=== PATIENT | female | born 1975 | race Caucasian/White ===

== ENCOUNTER 2017-12-12 05:51 | Observation (INO) | payer OTHER ==
[~2017-12-12] VITALS: Ht 152.4 cm; Wt 60.7 kg
[2017-12-12] MEDS ORDERED: ceFAZolin 2 GM PREMIX 50 ML ONE (06:59)
[2017-12-12] MEDS ORDERED: METOPROLOL TARTRATE 25 MG TAB PO PRN (07:00)
[2017-12-12] MEDS ORDERED: POVIDONE IODINE 5% (ANTISEPSIS KIT) 4 APPLICATIONS EACH NARE PRN (07:00)
[2017-12-12] MEDS ORDERED: CHLORHEXIDINE GLUCONATE 2 % 1 PACK (2 CLOTHS) TOPICAL PRN (07:00)
[2017-12-12] MEDS ORDERED: LACTATED RINGER'S 1000 ML IV PRN (07:00)
[2017-12-12] MEDS ORDERED: SODIUM CHLORID 0.9% 500 ML IV PRN (07:00)
[2017-12-12] MEDS ORDERED: ceFAZolin 2 GM PREMIX 50 ML IV SCH (07:15)
[2017-12-12] MEDS ORDERED: VASOPRESSIN 20 UNITS/ML VIAL (IVTITR) ONE (08:46)
[2017-12-12] MEDS ORDERED: ESTROGENS CONJUGATED VAG CREA 15 APPL/30 GM TUBE ONE (08:46)
[2017-12-12] MEDS ORDERED: BUPIVACAINE/EPINEPHRINE 0.25% PF 30 ML VIAL ONE (08:46)
[2017-12-12] MEDS ORDERED: LACTATED RINGER'S 1000 ML INJ 1,000 ML IV SCH (09:54)
--- NOTE | 2017-12-12 09:54 | HHI.PR ---
Immediate Post Op Note Procedure Date: Dec 12, 2017 Pre Op Diagnosis: (1) Premenopausal menorrhagia (2) Secondary dysmenorrhea (3) Cervical dysplasia, mild Post Op Diagnosis: (1) S/P laparoscopic assisted vaginal hysterectomy (LAVH) (2) Premenopausal menorrhagia (3) Secondary dysmenorrhea (4) Cervical dysplasia, mild Surgeon: Oneida Buckley Lease Out Man(s): Valerie Penaloza MD; [place] staff Procedure: exam under anesthesia, laparoscopic assisted vaginal hysterectomy, right salpingo-oophorectomy, left salpingectomy Findings: anteverted 10 wk size globular uterus; peritoneal window along right uterosacral ligament and blunting and shortening of right round ligament suspicion for endometriosis; normal left ovary; minimal adhesion of left fallopian tube to colon, successfully lysed; normal appearing cervix; slightly enlarged and elongated right ovary, normal appearing right fallopian tube Complications: none Specimen(s) removed: uterus, cervix, right fallopian tube, right ovary, left fallopian tube Estimated blood loss: 200 mL Anesthesia: General Drains: None Fluids: 1200 mL IVF Urinary Output (mLs): 175 Patient to: PACU Patient Condition: Good Oneida Buckley MD Dec 12, 2017 09:54
[2017-12-12] MEDS ORDERED: SODIUM CHLORIDE 0.9% FLUSH 10 ML FLUSH IV FLUSH SCH (10:00)
[2017-12-12] MEDS ORDERED: SODIUM CHLORIDE 0.9% FLUSH 10 ML FLUSH IV FLUSH PRN (10:00)
[2017-12-12] MEDS ORDERED: diphenhydrAMINE HCL 25 MG CAP PO PRN (10:00)
[2017-12-12] MEDS ORDERED: ONDANSETRON HCL 4 MG/2 ML VIAL IVP PRN (10:00)
[2017-12-12] MEDS ORDERED: LORazepam 0.5 MG TAB PO PRN (10:00)
[2017-12-12 11:15] VITALS: PULSE 68; RESP 16; TEMP 98.3
--- NOTE | 2017-12-12 11:41 | MP ---
cc: SUSAN GUTHRIE M.D. DATE OF SURGERY 12/12/2017 PREOPERATIVE DIAGNOSIS 1. Premenopausal menorrhagia. 2. Secondary dysmenorrhea. 3. Persistent cervical dysplasia. POSTOPERATIVE DIAGNOSIS 1. Premenopausal menorrhagia. 2. Secondary dysmenorrhea. 3. Persistent cervical dysplasia. 4. Post-op day 0. INDICATIONS Stella Echeverria is a 42-year-old, 2, para 2, who has a history of progressively heavier and more painful menstrual cycles. She declined medication management as well as minimally invasive options. Due to her history of inconsistent low-grade Paps over the past few years the patient desired a hysterectomy with or without removal of tubes and ovaries. PROCEDURE PERFORMED 1. Exam under anesthesia. 2. Laparoscopic-assisted vaginal hysterectomy. 3. Right salpingo-oophorectomy. 4. Left salpingectomy. SURGEON Susan Guthrie M.D. [employer] SURGEON Valerie Penaloza M.D. ANESTHESIA General. ESTIMATED BLOOD LOSS 200 mL. IV FLUID REPLACEMENT 1200 mL. URINE OUTPUT 175 mL of clear urine draining in the Escobar bag at the end of the procedure. COMPLICATIONS None. COUNTS Sponge, lap, instrument, and needle count correct x2 at the conclusion of the procedure. PROPHYLAXIS Ancef 2 grams IV was given preoperatively. SCDs were on and functioning throughout the entire case. INTRAOPERATIVE FINDINGS Normal female external genitalia. Cervix smooth, 3 cm, mobile with intact fornices. Uterus anteflexed, approximately 10 weeks' size. On intra-abdominal survey the uterus was somewhat globular. The right uterosacral ligament had a peritoneal window overlying it. The right round ligament was somewhat blunted with some thickening of the peritoneum suspicious for endometriosis in that area. The right ovary was somewhat enlarged and elongated. The right tube was within normal limits. There was slight scar tissue of the left fallopian tube to the colon. The left ovary was within normal limits. SPECIMEN Uterus, cervix, right ovary, right fallopian tube, left fallopian tube. PROCEDURE IN DETAIL After reviewing the informed consent the patient was taken to the operating suite where a timeout was performed to identify the patient, the planned procedure and any known allergies to drugs or drug products. The patient was placed in dorsal supine position and general anesthesia was administered without difficulty and found to be adequate. The patient was then gently elevated into low lithotomy position in Danny stirrups. Exam under anesthesia was performed with results as listed above. The abdomen and perineum were prepped and draped in normal sterile fashion. A Escobar catheter was placed using sterile technique. Attention was turned vaginally where a bivalve speculum was placed. The cervix was grasped on the anterior lip with a single-tooth tenaculum and the uterus sounded to 9 cm. Progression of cervical dilators were used to accommodate the HUMI uterine manipulator which was introduced without complication. The tenaculum and speculum were then removed vaginally. Attention was turned abdominally where approximately 3 mL of 1% lidocaine with epinephrine was injected at the base of the umbilicus. A scalpel was used to make a 5 mm incision at this point. Under direct visual entry technique the laparoscopic camera was introduced without complication and correct positioning was confirmed. The gas was turned on. The abdomen was insufflated. Slight Trendelenburg positioning was performed. An additional approximately 3 mL of 1% lidocaine with epinephrine were injected in the left and right lower quadrants where a scalpel was then used to make 5 mm incisions. At these points trocars were introduced under laparoscopic visual guidance without complication. Attention was turned to the right round ligament which was elevated, grasped with Harmonic scalpel, cauterized and divided. A bladder flap was then delineated on the right side. The right ovary and fallopian tube were then elevated from their vascular pedicle and Harmonic scalpel was used to clamp, seal, ligate and divide this pedicle with excellent hemostasis. Additional clamp, seal and divide technique using Harmonic scalpel was used to secure the uterine blood supply on the right down to the level of the uterine artery. Attention was then turned to the left. The left fallopian tube was attempted to be elevated. There was slight adhesion. This was lifted up and clearly visualized. Harmonic scalpel was used to successively clamp and ligate this adhesion without complication. The tube itself was then elevated and Harmonic scalpel was used to successively clamp, seal and ligate along the vascular pedicle. Once the tube was free the specimen was removed through the 5 mm trocar without complication and passed off the field to be evaluated by pathology. The left round ligament was then elevated, grasped with Harmonic scalpel, clamped, sealed and divided. Again the peritoneum overlying this area was gently developed to allow for a bladder flap on the left. The uterine blood supply was then secured using Harmonic scalpel with clamp, seal and divide technique all the way to the level of the uterine artery on the left. Excellent hemostasis was noted. The instruments were then removed from the laparoscopic trocars. The gas was turned off. The abdomen was desufflated. Attention was turned vaginally where a weighted speculum was placed posteriorly and a curved Olivier was used to retract anteriorly. The cervix was visualized, grasped on the anterior lip with a single-tooth tenaculum. Additional 1% lidocaine was injected in the vesicouterine peritoneum to separate the space between the lower uterine segment and the bladder. Bovie cautery was used to incise this space and using pickups and Metzenbaum scissors the anterior cul-de-sac was successfully entered and Olivier retractor replaced through this opening. Attention was then turned posteriorly where pickups and curved Tuttle scissors were used to successfully enter the posterior cul-de-sac. Again appropriate entry was noted. A single suture of 0 Vicryl was used to nicki the colpotomy and a bivalve weighted speculum was introduced into the posterior culdesac. Curved hysterectomy clamps were then used to successively clamp, cut and suture ligate the uterine blood supply with 0 Vicryl suture leading to excellent hemostasis and detachment of the specimen. After approximately three bites on either side the specimen was delivered and passed off the field to be evaluated by pathology. Excellent hemostasis was noted. The Nimesh Hope retractor was removed and a standard weighted speculum was replaced. The posterior cuff was closed in a running fashion with #1 Vicryl with excellent hemostasis noted. The uterosacral ligaments were incorporated into this closure to allow for excellent elevation and support. Additional #1 Vicryl was then used to close the remainder of the cuff in a [id number] vertical fashion with excellent hemostasis and support noted. The uterosacral ligaments were tied together in the midline for additional support. Irrigation with suction was performed vaginally. All instruments were removed vaginally. Attention was turned back abdominally where the gas was turned back on, the abdomen insufflated. Laparoscopic camera was reintroduced abdominally. The cuff was noted to be intact, hemostatic, with excellent pelvic support. The left ovary was within normal limits. Additional irrigation with suction was performed. Surgicel powder was placed over the suture lines. The procedure concluded at this point. All instruments were removed from the trocar sleeves. The abdomen was desufflated. The patient was given three deep breaths to assist in this process. The trocars were removed and using 3-0 Vicryl in a buried U-type stitch all three 5 mm incision sites were closed. The skin was cleaned and dried and Steri-Strips were placed. The patient was brought back into dorsal supine position. She was awoken from anesthesia without complication. DISPOSITION The patient is resting in the PACU. Her estimated length of stay is observation overnight. MD MITCHELL Taylor/RAYNE /11:00 AM /11:15 AM TAL
[2017-12-12] MEDS: traMADol HCL 50 MG TAB PO PRN ×2 (11:52→18:36)
[2017-12-12] MEDS ORDERED: DEXAMETHASONE SOD PHOS 4 MG/ML VIAL IV ONE (12:00)
[2017-12-12] MEDS ORDERED: ROCURONIUM INJ 50 MG/5 ML SYRINGE IV PUSH ONE (12:00)
[2017-12-12] MEDS ORDERED: ONDANSETRON HCL 4 MG/2 ML VIAL IV PUSH ONE (12:00)
[2017-12-12] MEDS ORDERED: PROPOFOL 200 MG/20 ML AMP IV ONE (12:00)
[2017-12-12] MEDS ORDERED: PHENYLEPH/NS 1000 MCG/10 ML SYR IV ONE (12:00)
[2017-12-12] MEDS ORDERED: ePHEDrine/NS 25 MG/5 ML SYRINGE IV ONE (12:00)
[2017-12-12] MEDS ORDERED: KETOROLAC TROMETHAMINE 30 MG/ML (IVP) VIAL IV PUSH ONE (12:00)
[2017-12-12] MEDS ORDERED: LIDOCAINE HCL 1% PF 5 ML SYRINGE OTHER ONE (12:00)
[2017-12-12] MEDS ORDERED: GLYCOPYRROLATE 1 MG/5 ML SYRINGE IV PUSH ONE (12:00)
[2017-12-12] MEDS ORDERED: NEOSTIGMINE 5 MG/5 ML SYRINGE IV PUSH ONE (12:00)
[2017-12-12 15:00] VITALS: BP 107/64; RESP 16; TEMP 98.5
[2017-12-12] MEDS: ACETAMINOPHEN 1000 MG/100 ML 100 ML IV SCH ×2 (15:46→21:55)
[2017-12-12] MEDS: KETOROLAC TROMETHAMINE 30 MG/ML (IVP) VIAL IVP SCH ×2 (15:48→21:56)
[2017-12-12 20:00] VITALS: BP 80/54; PULSE 68; RESP 18; TEMP 98; O2SAT 99
[2017-12-12] MEDS ORDERED: ZOLPIDEM TARTRATE 5 MG TAB PO PRN (21:00)
[2017-12-12] MEDS: DOCUSATE SODIUM 50 MG/SENNA 8.6 MG TAB PO SCH (21:55)
[2017-12-13] VITALS: BP_SYST 66; BP_SYST 82; BP_DIAS 44; BP_DIAS 46; PULSE 62; RESP 16; TEMP 98; O2SAT 96
[2017-12-13] MEDS: ACETAMINOPHEN 1000 MG/100 ML 100 ML IV SCH (03:56)
[2017-12-13] MEDS: KETOROLAC TROMETHAMINE 30 MG/ML (IVP) VIAL IVP SCH (03:56)
[2017-12-13 04:00] VITALS: BP 88/52; PULSE 81; RESP 18; TEMP 98.1; O2SAT 95
[2017-12-13 05:55] LABS: BASOPHIL % 0.3 % (0.0-2.0); EOSINOPHIL % 0.4 % (0.0-4.0); HEMATOCRIT 29.5 % (35.0-46.0); HEMOGLOBIN 10.1 GM/DL (11.6-15.3); LYMPH % 25.1 % (9.0-44.0); MEAN CELL VOLUME 89.5 FL (80.0-100.0); MEAN CORPUSCULAR HEMOGLOBIN 30.5 PG (27.0-34.0); MEAN CORPUSCULAR HGB CONC 34.1 % (32.0-36.0); MEAN PLATELET VOLUME 9.8 FL (7.0-11.0); MONO % 10.8 % (0.0-8.0); MONOCYTE # 0.9 TH/MM3 (0-0.9); NEUT % 63.4 % (16.0-70.0); PLATELET COUNT 134 TH/MM3 (150-450); RED CELL DISTRIBUTION WIDTH 13.2 % (11.6-17.2); WHITE BLOOD COUNT 7.9 TH/MM3 (4.0-11.0)
[2017-12-13] MEDS ORDERED: ZOFR4TAB3 SL (07:40)
[2017-12-13] MEDS ORDERED: IBUP1TAB7 PO (07:40)
[2017-12-13] MEDS ORDERED: PERI PO (07:40)
[2017-12-13] MEDS ORDERED: TRAM50 PO (07:40)
--- NOTE | 2017-12-13 07:45 | HHI.DS ---
Discharge Summary Admission Date Dec 12, 2017 at 09:58 Discharge Date: Dec 13, 2017 Admitting Diagnosis premenopausal menorrhagia, secondary dysmenorrhea, cervical dysplasia (1) S/P laparoscopic assisted vaginal hysterectomy (LAVH) Diagnosis: Principal ICD Codes: Z90.710 - Acquired absence of both cervix and uterus (2) Premenopausal menorrhagia Diagnosis: Principal ICD Codes: N92.4 - Excessive bleeding in the premenopausal period (3) Secondary dysmenorrhea Diagnosis: Principal ICD Codes: N94.5 - Secondary dysmenorrhea (4) Cervical dysplasia, mild Diagnosis: Principal ICD Codes: N87.0 - Mild cervical dysplasia Procedures exam under anesthesia, laparoscopic assisted vaginal hysterectomy, right salpingo-oophorectomy, left salpingectomy Brief History 42 yo premenopausal pt seen in office for h/o progressively heavier more painful menses over past few years as well as history of recurrent SHARI I. Pt declined medical management and desired definitive surgical management with hysterectomy. CBC/BMP: 12/13/17 0509 Significant Findings Laboratory Tests Test 12/13/17 05:09 Red Blood Count 3.30 MIL/MM3 (4.00-5.30) Hemoglobin 10.1 GM/DL (11.6-15.3) Hematocrit 29.5 % (35.0-46.0) Platelet Count 134 TH/MM3 (150-450) Monocytes (%) (Auto) 10.8 % (0.0-8.0) PE at Discharge NAD A&Ox3 CTA b/l no wheeze RRR abd soft NTND +BS incisions c/d/i steri-strips in place x 3 LSC incision sites pad dry no c/c/e x 4 Hospital Course Pt admitted for scheduled surgery which was uncomplicated. Did well overnight POD#0, pain well controlled. On POD#1 pt was ambulating, voiding, tolerating diet, meeting all discharge criteria. D/c to home with office f/u 1-2 weeks. Postcare instructions reviewed in detail. Pt Condition on Discharge: Good Discharge Disposition: Discharge Home Discharge Instructions DIET: Follow Instructions for: As Tolerated, No Restrictions Activities you can perform: Partial Weight Bearing, Shower Only-No Bath, Pelvic Rest Activities to avoid: Strenuous Activity, Driving (no driving x 2 weeks), Sexual Activity (pelvic rest x 6 weeks) Oneida Buckley MD Dec 13, 2017 07:45
--- NOTE | 2017-12-13 07:50 | HHI.OB ---
Subjective Post Operative Day: 1 Remarks s/p scheduled LAVH RSO L salpingectomy Objective Vitals/I&O Vital Signs Date Time Temp Pulse Resp B/P (MAP) Pulse Ox O2 Delivery O2 Flow Rate FiO2 12/13/17 04:00 98.1 81 18 88/52 (64) 95 12/13/17 00:00 98.0 62 16 66/46 (53) 96 82/44 (57) 12/12/17 20:00 98.0 68 18 80/54 (63) 99 12/12/17 15:00 98.5 16 107/64 (78) 12/12/17 11:15 98.3 68 16 12/12/17 10:55 97.9 62 19 91/51 (64) 95 Room Air 12/12/17 10:45 63 18 91/56 (68) 98 Room Air 12/12/17 10:30 61 13 92/54 (67) 100 Nasal Cannula 2 12/12/17 10:15 67 17 95/54 (68) 100 Nasal Cannula 2 12/12/17 10:07 97.9 68 24 93/54 (67) 99 Nasal Cannula 2 Result Diagram: 12/13/17 0509 Objective Remarks GENERAL: Well-nourished, well-developed patient. CARDIOVASCULAR: Regular rate and rhythm without murmurs, gallops, or rubs. RESPIRATORY: Breath sounds equal bilaterally. No accessory muscle use. ABDOMEN/GI: Abdomen soft, non-tender, bowel sounds present. Incision: Clean, dry and intact. steri-strips in place x 3 GENITOURINARY: pad dry EXTREMITIES: No cyanosis or edema, non-tender, without signs of DVT. Medications and IVs Current Medications Medications (Trade) Dose Ordered Sig/Ariana Route Start Time Stop Time Status Last Admin Lactated Ringer's 1,000 ml @ 30 mls/hr Q24H PRN IV 12/12/17 07:00 12/15/17 06:59 12/12/17 07:00 Sodium Chloride 500 ml @ 30 mls/hr [id number] PRN IV 12/12/17 07:00 12/15/17 06:59 (Lopressor) 25 mg [employer]NAL [employer]ICINE SPECIALIST PRN PO 12/12/17 07:00 12/15/17 06:59 (Betadine 5% Antisepsis Kit) 1 applic INTERNAL MEDICINE SPECIALIST PRN EACH NARE 12/12/17 07:00 12/15/17 06:59 12/12/17 07:10 (Chlorhexidine 2% Cloth) 3 pack INTERNAL MEDICINE SPECIALIST PRN TOPICAL 12/12/17 07:00 12/15/17 06:59 12/12/17 06:30 (NS Flush) 2 ml UNSCH PRN IV FLUSH 12/12/17 10:00 12/13/17 03:56 (NS Flush) 2 ml BID IV FLUSH 12/12/17 10:00 12/12/17 21:55 (Toradol Inj) 30 mg Q6H IVP 12/12/17 10:00 12/13/17 09:59 12/13/17 03:56 (Benadryl) 25 mg Q6H PRN PO 12/12/17 10:00 (Zofran Inj) 8 mg Q8H PRN IVP 12/12/17 10:00 12/12/17 11:52 (Ambien) 5 mg HS PRN PO 12/12/17 21:00 (Ativan) 0.25 mg Q8H PRN PO 12/12/17 10:00 (Janine-Colace) 1 tab BID PO 12/12/17 21:00 12/12/17 21:55 Acetaminophen 100 ml @ 400 mls/hr Q6H IV 12/12/17 10:00 12/13/17 09:59 12/13/17 03:56 (Ultram) 50 mg Q6H PRN PO 12/12/17 11:15 12/12/17 18:36 Assessment/Plan Problem List: (1) S/P laparoscopic assisted vaginal hysterectomy (LAVH) ICD Codes: Z90.710 - Acquired absence of both cervix and uterus (2) Premenopausal menorrhagia ICD Codes: N92.4 - Excessive bleeding in the premenopausal period (3) Secondary dysmenorrhea ICD Codes: N94.5 - Secondary dysmenorrhea (4) Cervical dysplasia, mild ICD Codes: N87.0 - Mild cervical dysplasia Assessment and Plan POD#1 s/p scheduled LAVH RSO L-salpingectomy for menorrhagia, dysmenorrhea, persistent SHARI I doing well, meeting all criteria discharge to home today reviewed postcare instructions in detail, pt voices understanding Oneida Buckley MD Dec 13, 2017 07:50
[2017-12-13] MEDS: traMADol HCL 50 MG TAB PO PRN (08:58)
[2017-12-13] MEDS: DOCUSATE SODIUM 50 MG/SENNA 8.6 MG TAB PO SCH (08:58)
== END 2017-12-13 09:48 | disposition home or self-care (01) ==
LOC: HSDC 05:51 → HSDI 09:58 → H1EA 11:00
PROVIDERS: ADMIT Obstetrics & Gynecology; ATTEND Obstetrics & Gynecology
DX: N92.4 Excessive bleeding in the premenopausal period (principal); N94.6 Dysmenorrhea, unspecified; D06.9 Carcinoma in situ of cervix, unspecified; N83.01 Follicular cyst of right ovary; Z87.891 Personal history of nicotine dependence
CPT/HCPCS: 00840; 58552; 85025; 86850; 86900; 86901; 88309; 96365; 96366; 96375; 96376; G0378; J0131; J0690; J1100; J1885; J2370; J2405; J2710; J7120; 88307